=== PATIENT | female | born 1955 | race Caucasian/White ===

== ENCOUNTER 2017-07-20 10:14 | Emergency (ER) | payer OTHER ==
[2017-07-20] MEDS ORDERED: Ketorolac Tromethamine 60 MG/2 ML VIAL ONE (10:32)
== END 2017-07-20 10:44 | disposition home or self-care (01) ==
LOC: NAV ERS 10:14
DX: M54.5 Low back pain (principal); M79.604 Pain in right leg; F17.210 Nicotine dependence, cigarettes, uncomplicated; Z79.899 Other long term (current) drug therapy; I10 Essential (primary) hypertension
CPT/HCPCS: 96372; J1885